=== PATIENT | female | born 2000 | race Two or more races ===

== ENCOUNTER 2022-02-01 20:54 | Emergency (ER) | payer MEDICAID ==
[~2022-02-01] VITALS: Ht 162.6 cm; Wt 67.5 kg
[2022-02-01 20:59] VITALS: BP 123/81
--- NOTE | 2022-02-01 23:40 | NUR ---
PT IS NOT IN ROOM T2 AT THIS TIME
--- NOTE | 2022-02-02 00:15 | NUR ---
PT STILL NOT IN ROOM, NOT IN LOBBY EITHER
--- NOTE | 2022-02-02 01:00 | NUR ---
PT NOT IN ROOM, LWOBS
== END 2022-02-02 01:00 | disposition left against medical advice (07) ==
LOC: ER 20:55
DX: M79.671 Pain in right foot (principal)
CPT/HCPCS: 73660

== ENCOUNTER 2022-09-25 19:49 | Emergency (ER) | payer MEDICAID ==
--- NOTE | 2022-09-25 20:06 | NUR ---
Patient is outside when I attempted to triage. I went outside to call the patient, she was states, "I'm addicted to cigarettes, I need to smoke." Patient states she will come inside to be triaged when she is done.
== END 2022-09-25 20:50 | disposition left against medical advice (07) ==
LOC: ER 19:51
DX: R22.0 Localized swelling, mass and lump, head (principal); Z53.21 Procedure and treatment not carried out due to patient leaving prior to being seen by health care provider